=== PATIENT | male | born 1995 | race Caucasian/White ===

== ENCOUNTER 2018-09-06 11:04 | Emergency (ER) | payer SELFPAY ==
[~2018-09-06] VITALS: Wt 89.0 kg
[2018-09-06 11:15] VITALS: BP 140/78; PULSE 78; RESP 18
[2018-09-06] MEDS ORDERED: DOXY100T20 PO (11:28)
[2018-09-06] MEDS ORDERED: BENZ142C7 TP (11:28)
[2018-09-06] MEDS ORDERED: ADAP45CR2 TOP (11:29)
--- NOTE | 2018-09-06 11:43 | ERD ---
ER Documentation Chief Complaint Chief Complaint RASH/PIMPLES ON FOREHEAD HPI 23-year-old male presents emergency department complaining of pimples on forehead for the past 2 weeks. Patient states that the very painful. Rating it moderate in severity. He denies using any medications or taking medications. ROS All systems reviewed and are negative except as per history of present illness. Medications Home Meds Active Scripts Adapalene (Differin) 0.1% - 45 Gm Cream.gm., 1 APPLIC TOP HS, #1 TUB Prov:ASHLEY JULIO PA-C 09/06/18 Benzoyl Peroxide (Benzoyl Peroxide) 142 Gm Cleanser, 142 APPLIC TP DAILY, #60 Prov:ASHLEY JULIO PA-C 09/06/18 Doxycycline Hyclate* (Doxycycline Hyclate*) 100 Mg Tablet.dr, 100 MG PO BID for 14 Days, TAB Prov:ASHLEY JULIO PA-C 09/06/18 PMhx/Soc History of Surgery: No Anesthesia Reaction: No Hx Neurological Disorder: No Hx Respiratory Disorders: No Hx Cardiac Disorders: No Hx Psychiatric Problems: No Hx Miscellaneous Medical Probl: No Hx Alcohol Use: No Hx Substance Use: No Hx Tobacco Use: No Smoking Status: Never smoker Physical Exam Vitals Vital Signs Date Temp Pulse Resp B/P (MAP) Pulse Ox O2 O2 Flow FiO2 Time Delivery Rate 09/06/18 98.0 78 18 140/78 99 11:15 (98) Physical Exam Const: No acute distress Head: Atraumatic Eyes: Normal Conjunctiva ENT: Normal External Ears, Nose and Mouth. Neck: Full range of motion. No meningismus. Resp: Clear to auscultation bilaterally Cardio: Regular rate and rhythm, no murmurs Abd: Soft, non tender, non distended. Normal bowel sounds Skin: Small pustules throughout forehead and face Back: No midline or flank tenderness Ext: No cyanosis, or edema Neur: Awake and alert Psych: Normal Mood and Affect Procedures/MDM This is a 23-year-old male presenting with pustules on face, there was no evidence of facial cellulitis or deep space infection. Patient appears well and stable to be discharged home with prescription for doxycycline, benzoyl peroxide and Differin. Return precautions given he understands agrees this plan Departure Diagnosis: Primary Impression: Acne Condition: Stable Patient Instructions: Acne, Folliculitis Additional Instructions: Visite a robin mdico tommyana para un EXAMEN.Regrese a estas instalaciones si no se mejora alexys esperbamos o alexys le dijililiams. [place] toda la medicina gabrielle y alexys se le indic. Regrese a estas instalaciones si no se mejora alexys esperbamos o alexys le jacintamo s. ASHLEY JULIO PA-C Sep 06, 2018 11:43
== END 2018-09-06 11:48 | disposition home or self-care (01) ==
LOC: FTE 11:04
DX: L70.9 Acne, unspecified (principal)
CPT/HCPCS: 99283